=== PATIENT | female | born 1940 | race Caucasian/White ===

== ENCOUNTER → 2020-06-28 | Outpatient (CLI) | payer MEDICARE ==
--- NOTE | 2020-06-28 14:37 | US ---
EXAMINATION TYPE: US thyroid st tissue head/neck DATE OF EXAM: 06/28/2020 COMPARISON: NONE CLINICAL HISTORY: 79-year-old female E04.9 NONTOXIC GOITER. Goiter, patient on thyroid meds TECHNIQUE: Multiple sonographic images of the thyroid gland are obtained. FINDINGS: GLAND SIZE: Right Lobe: 4.0 x 1.6 x 1.4 cm Overall Parenchyma: Very slightly heterogeneous Left Lobe: 4.0 x 3.6 x 1.3 cm Overall Parenchyma: Very slightly heterogeneous Isthmus Thickness: 0.4 cm NODULES RIGHT: # of nodules measured on right: 0 LEFT: # of nodules measured on left: 0 ISTHMUS: # of nodules measured in the isthmus: 0 Bilateral neck scanned, no evidence of lymphadenopathy. IMPRESSION: Normal-sized thyroid gland. No discrete nodules.
== END | disposition home or self-care (01) ==
LOC: RADUSWWP 13:28
PROVIDERS: ATTEND Family Medicine
DX: E04.9 Nontoxic goiter, unspecified (principal)
CPT/HCPCS: 76536

== ENCOUNTER → 2021-09-28 | Outpatient (CLI) | payer MEDICARE | END | disposition home or self-care (01) | LOC: LABWHC1 15:35 | PROVIDERS: ATTEND Ophthalmology | DX: H47.011 Ischemic optic neuropathy, right eye (principal); H53.19 Other subjective visual disturbances | CPT/HCPCS: 36415; 85652 ==

== ENCOUNTER → 2021-09-28 | Outpatient (CLI) | payer MEDICARE ==
--- NOTE | 2021-09-28 15:45 | US ---
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 TECHNIQUE: Carotid duplex ultrasound examination. Indirect Doppler criteria was utilized. FINDINGS: EXAM MEASUREMENTS: RIGHT: Peak Systolic Velocity (PSV) cm/sec ----- Right CCA: 98.1 ----- Right ICA: 105 ----- Right ECA: 83.9 ICA/CCA ratio: 1.07 RIGHT: End Diastole cm/sec ----- Right CCA: 30.6 ----- Right ICA: 25.5 ----- Right ECA: 15.7 LEFT: Peak Systolic Velocity (PSV) cm/sec ----- Left CCA: 96.9 ----- Left ICA: 80.8 ----- Left ECA: 222 ICA/CCA ratio: 0.83 LEFT: End Diastole cm/sec ----- Left CCA: 26.5 ----- Left ICA: 30.4 ----- Left ECA: 42.0 VERTEBRALS (direction of flow): Right Vertebral: Antegrade Left Vertebral: Antegrade Rhythm: Normal Elevated velocities seen in Left ECA IMPRESSION: 1. No hemodynamically significant internal carotid artery stenosis on either side. 2. Elevated velocities in the left ECA suggest at least a moderate stenosis. Criteria for Assigning % of Stenosis / Diameter reduction (Estimation based on the indirect measurements of the internal carotid artery velocities (ICA PSV). 1. Normal (no stenosis)=ICA PSV < 125 cm/s: ratio < 2.0: ICA EDV<40 cm/s. 2. Less than 50% stenosis=ICA PSV < 125 cm/s: ratio < 2.0: ICA EDV<40 cm/s. 3. 50 to 69% stenosis=ICA PSV of 125 to 230 cm/s: ration 2.0 ? 4.0: ICA EDV 40-100 cm/s. 4. Greater than 70% stenosis to near occlusion= ICA PSV > 230 cm/s: ratio > 4.0: ICA EDV > 100 cm/s. 5. Near occlusion= ICA PSV velocities may be low or undetectable: variable ratio and ICA EDV. 6. Total occlusion=unable to detect flow.
== END | disposition home or self-care (01) ==
LOC: RADUSWWP 15:02
PROVIDERS: ATTEND Ophthalmology
DX: H47.011 Ischemic optic neuropathy, right eye (principal); H53.19 Other subjective visual disturbances
CPT/HCPCS: 93880

== ENCOUNTER → 2021-10-07 | Outpatient (CLI) | payer MEDICARE ==
--- NOTE | 2021-10-08 16:35 | MR ---
EXAMINATION TYPE: MR brain/orbits wo/w con DATE OF EXAM: 10/07/2021 COMPARISON: None HISTORY: H47.011 Optic Neuropathy H53.49 Visual disturbance, Right sided vision loss, starting to imp rove. CONTRAST: Standard multiplanar, multisequence MRI departmental protocol images were obtained without contrast a nd with 7 mL intravenous Gadavist gadolinium contrast. There is cerebral cortical atrophy. There is no mass effect or midline shift. Diffusion images show n o evidence of acute infarct. There are scattered small white matter high signal foci at the park-whit e matter junction both cerebral hemispheres. These measure up to 5 mm and total numbers approximately 15. Most of the lesions are less than 3 mm. Brain stem is intact. The corpus callosum is intact. Karlie la turcica appears normal. There is no evidence of orbital mass. There is no retro-orbital mass. The optic chiasm appears normal . There is no evidence of sellar mass. Contrast images show no pathologic enhancement. There is normal enhancement of the venous sinuses. IMPRESSION: Cerebral atrophy. No acute intracranial abnormality. Scattered white matter high signal peripheral fo ci likely related to microvascular ischemia. No focal orbital abnormality.
== END | disposition home or self-care (01) ==
LOC: RADMRIMAIN 13:20
PROVIDERS: ATTEND Ophthalmology
DX: G31.9 Degenerative disease of nervous system, unspecified (principal); R93.0 Abnormal findings on diagnostic imaging of skull and head, not elsewhere classified
CPT/HCPCS: 70543; 70553; A9585